=== PATIENT | male | born 1960 | race Caucasian/White ===

== ENCOUNTER 2017-03-12 15:42 | Emergency (ER) | payer MEDICAID, OTHER ==
[2017-03-12 15:49] VITALS: BMI 35.9
[2017-03-12 15:58] VITALS: BP 120/87; O2SAT 98
[2017-03-12] MEDS ORDERED: Lidocaine 1% Inj (20ml) IJ STA (16:30)
[2017-03-12] MEDS: TDAP Vaccine 0.5 mL Syr IM ONE (16:42)
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
[2017-03-12 18:23] VITALS: PULSE 92; TEMP 98
[2017-03-12 18:27] VITALS: RESP 18
--- NOTE | 2017-03-13 08:30 | RAD ---
PROCEDURE: Radiographs of the Lumbar Spine. HISTORY: trauma COMPARISON: No prior. FINDINGS: BONES: Normal alignment. No listhesis. No fracture. DISC SPACES: Unremarkable. OTHER FINDINGS: None. IMPRESSION: Unremarkable radiographs of the lumbar spine.
== END 2017-03-12 18:27 | disposition home or self-care (01) ==
LOC: ED 15:42
DX: S71.112A Laceration without foreign body, left thigh, initial encounter (principal); X99.1XXA Assault by knife, initial encounter; Z23 Encounter for immunization
CPT/HCPCS: 12002; 72110; 90471; 90715; 96372; 99283; J1885

== ENCOUNTER 2017-03-20 21:20 | Emergency (ER) | payer MEDICAID ==
[2017-03-20 21:20] VITALS: BMI 35.9
--- NOTE | 2017-03-20 21:25 | ED PDOC ---
Arrival/HPI - General Time Seen by Provider: 03/20/17 21:21 Historian: Patient - History of Present Illness Narrative History of Present Illness (Text): 03/20/17 21:22 56yo male in ED for suture removal from his left thigh. sutures was placed here on 03/12/17. He denies fever, discharge from wound, redness, any other complaint. Past Medical History - Provider Review Nursing Documentation Reviewed: Yes - Infectious Disease Hx of Infectious Diseases: None - Tetanus Immunization Tetanus Immunization: Unknown - Past Medical History Past Medical History: No Previous - Cardiac Hx Peripheral Edema: Yes (ble +2 pitting) - HEENT Hx HEENT Disorder: Yes (wears glasses) - Hematological/Oncological Hx Hepatitis C: Yes - Musculoskeletal/Rheumatological Hx Falls: No - Gastrointestinal Hx Gastrointestinal Disorders: (hemoptysis) Hx Liver Failure: (hep c) - Psychiatric Hx Substance Use: No - Past Surgical History Past Surgical History: Unable to Obtain - Surgical History Other/Comment: Pt. states he had abdominal surgery but not sure for what or if they took any organ... - Suicidal Assessment Feels Threatened In Home Enviroment: No Family/Social History - Physician Review Nursing Documentation Reviewed: Yes Family/Social History: Unknown Family HX Smoking Status: Never Smoked Hx Alcohol Use: No Hx Substance Use: No Allergies/Home Meds Allergies/Adverse Reactions: Allergies No Known Allergies Allergy (Verified 03/12/17 15:49) Home Medications: Home Meds Medication Instructions Recorded Confirmed Lactulose [Generlac] 30 ml PO HS 09/19/14 03/12/17 Levothyroxine Sodium 200 mcg PO DAILY 09/19/14 03/12/17 [Levothyroxine] Ribavirin [Rebetol] 200 mg PO AMHS 09/19/14 03/12/17 Sovaldi 400 mg PO DAILY 09/19/14 03/12/17 Review of Systems - Physician Review All systems were reviewed & negative as marked: Yes - Review of Systems Constitutional: Normal Eyes: Normal ENT: Normal Respiratory: Normal Cardiovascular: Normal Gastrointestinal: Normal Genitourinary Male: Normal Musculoskeletal: Normal Skin: Other (Suture removal) Neurological: Normal Endocrine: Normal Hemo/Lymphatic: Normal Psychiatric: Normal Physical Exam Vital Signs Reviewed: Yes Vital Signs Temp Pulse Resp BP Pulse Ox 03/20/17 21:28 98.2 F 82 18 108/64 99 Temperature: Afebrile Blood Pressure: Normal Pulse: Regular Respiratory Rate: Normal Appearance: Positive for: Well-Appearing, Non-Toxic, Comfortable Pain Distress: None Mental Status: Positive for: Alert and Oriented X 3 - Systems Exam Head: Present: Atraumatic, Normocephalic Pupils: Present: PERRL Extroacular Muscles: Present: EOMI Conjunctiva: Present: Normal Mouth: Present: Moist Mucous Membranes Neck: Present: Normal Range of Motion Respiratory/Chest: Present: Clear to Auscultation, Good Air Exchange. No: Respiratory Distress, Accessory Muscle Use Cardiovascular: Present: Regular Rate and Rhythm, Normal S1, S2. No: Murmurs Abdomen: Present: Normal Bowel Sounds. No: Tenderness, Distention, Peritoneal Signs Back: Present: Normal Inspection Upper Extremity: Present: Normal Inspection. No: Cyanosis, Edema Lower Extremity: Present: Normal Inspection. No: Edema Neurological: Present: GCS=15, CN II-XII Intact, Speech Normal Skin: Present: Warm, Dry, Normal Color, Other (11sutures noted in place on left thigh with surrounding ecchymosis. No erythema. No purulent discharge. No sign of infection noted.). No: Rashes Psychiatric: Present: Alert, Oriented x 3, Normal Insight, Normal Concentration Medical Decision Making ED Course and Treatment: 03/20/17 21:38 Suture area cleaned with betadine. 11sutures removed. Edges appear well approximated. Bacitracine applied and dressed. Advised to continue keeping area clean and dry. Referred to his PMD. TRT ED for any new symptoms. Disposition/Present on Arrival - Present on Arrival Any Indicators Present on Arrival: No History of DVT/PE: No History of Uncontrolled Diabetes: No Urinary Catheter: No History Surgical Site Infection Following: None - Disposition Have Diagnosis and Disposition been Completed?: Yes Diagnosis: Visit for suture removal Disposition: HOME/ ROUTINE Disposition Time: 21:35 Patient Plan: Discharge Patient Problems: Current Active Problems Problem Status Onset Visit for suture removal Acute Condition: STABLE Discharge Instructions (ExitCare): Stitches Removal (ED) Additional Instructions: Keep wound clean and dry Follow up with your doctor Return to Ed for any new or worsening symptoms Referrals: [facility] [place] [Outside] - Follow up with primary
[2017-03-20 21:34] VITALS: BP 108/64; PULSE 82; RESP 18; TEMP 98.2; O2SAT 99
== END 2017-03-20 21:40 | disposition home or self-care (01) ==
LOC: ED 21:20
DX: Z48.02 Encounter for removal of sutures (principal)